=== PATIENT | female | born 1950 | race Caucasian/White ===

== ENCOUNTER 2017-04-17 09:51 | Outpatient (RCR) | payer MEDICARE, MEDICAID | END 2017-04-17 16:00 | disposition home or self-care (01) | LOC: WOUNDCARE 09:51 | PROVIDERS: ATTEND Surgery | DX: L89.623 Pressure ulcer of left heel, stage 3 (principal); G82.50 Quadriplegia, unspecified | CPT/HCPCS: 11042; 29445; 87070; 87075; 87186; 87205 ==

== ENCOUNTER → 2017-04-24 | Outpatient (CLI) | payer MEDICARE, MEDICAID | LOC: WOUNDCARE 09:54 | PROVIDERS: ATTEND Surgery | DX: L89.623 Pressure ulcer of left heel, stage 3 (principal); G82.50 Quadriplegia, unspecified | CPT/HCPCS: 99212 ==

== ENCOUNTER → 2017-05-01 | Outpatient (CLI) | payer MEDICARE, MEDICAID | LOC: WOUNDCARE 09:53 | PROVIDERS: ATTEND Surgery | DX: L89.623 Pressure ulcer of left heel, stage 3 (principal); G82.50 Quadriplegia, unspecified | CPT/HCPCS: 11042 ==

== ENCOUNTER → 2017-05-15 | Outpatient (CLI) | payer MEDICARE, MEDICAID | LOC: WOUNDCARE 10:03 | PROVIDERS: ATTEND Surgery | DX: L89.623 Pressure ulcer of left heel, stage 3 (principal); G82.50 Quadriplegia, unspecified | CPT/HCPCS: 99212 ==